=== PATIENT | male | born 1970 | race Caucasian/White ===

== ENCOUNTER 2016-11-15 22:13 | Emergency (ER) | payer MEDICAID, OTHER ==
[~2016-11-15] VITALS: Ht 185.4 cm; Wt 80.5 kg
[~2016-11-15 22:13] MED LIST: IBUP800T23 PO; Z.0.NO CURRENT MEDS
[2016-11-15 22:20] VITALS: BP 141/90; PULSE 63; RESP 16; TEMP 98.6; O2SAT 98
[2016-11-15] MEDS ORDERED: AMOX500T PO (22:45)
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
[2016-11-15] MEDS ORDERED: HYDROmorphone HCL PF 2 MG/ML VIAL IV PUSH ONE (23:00)
[2016-11-15] MEDS ORDERED: AMOXICILLIN (TRIHYDRATE) 500 MG CAP PO ONE (23:00)
== END 2016-11-15 23:05 | disposition home or self-care (01) ==
LOC: PHED 22:13
DX: J20.9 Acute bronchitis, unspecified (principal); F17.210 Nicotine dependence, cigarettes, uncomplicated; Z90.81 Acquired absence of spleen
CPT/HCPCS: 99283

== ENCOUNTER 2017-05-12 11:12 | Emergency (ER) | payer SELFPAY ==
[~2017-05-12] VITALS: Ht 185.4 cm; Wt 76.5 kg
[~2017-05-12 11:12] MED LIST changes: +AMOX500T PO; -IBUP800T23 PO; -Z.0.NO CURRENT MEDS
[2017-05-12 11:22] VITALS: BP 141/81; PULSE 61; RESP 15; TEMP 98.6; O2SAT 98
[2017-05-12] MEDS ORDERED: AMOX875T PO (12:05)
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
== END 2017-05-12 12:12 | disposition home or self-care (01) ==
LOC: PHEFT 11:12
DX: J00 Acute nasopharyngitis [common cold] (principal); F17.210 Nicotine dependence, cigarettes, uncomplicated; Z90.81 Acquired absence of spleen
CPT/HCPCS: 87081; 87804; 87880; 99283

== ENCOUNTER 2017-07-09 09:48 | Emergency (ER) | payer SELFPAY ==
[~2017-07-09] VITALS: Ht 185.4 cm; Wt 80.0 kg
[~2017-07-09 09:48] MED LIST changes: -AMOX500T PO; +AMOX875T PO
[2017-07-09 09:50] VITALS: BP 138/82; PULSE 67; RESP 16; TEMP 97.6; O2SAT 99
[2017-07-09] MEDS ORDERED: IBUPROFEN 800 MG TAB PO ONE (10:15)
--- NOTE | 2017-07-09 10:32 | PD ---
HPI . Right knee pain and swelling Chief Complaint: Musculoskeletal Complaint Time Seen by Provider: 09:54 Travel History International Travel<30 days: No Contact w/Intl Traveler<30days: No Traveled to known affect area: No History of Present Illness HPI 47-year-old male patient presents emergency department for evaluation of right knee pain and swelling 2 days. The patient denies any falls, traumas or injuries to the right knee. Patient denies any history of right knee problems. Patient states that he was running a couple months ago and felt like he pulled something the posterior aspect of his right leg proximal to the popliteal region and thinks that injury might be contributing to his right knee pain and swelling now but isn't sure. Patient denies any major medical history. Patient doesn't take any daily medication. Patient denies any fever, chills, malaise, shortness breath. Patient is ambulatory from triage with a right knee brace in place. PFSH Past Medical History Blood Disorders: Yes (THALESEMIA) Anxiety: Yes Gastrointestinal Disorders: Yes (HX OF BLOOD IN STOOLS) Past Surgical History Other Surgery: Yes (SPLEENECTOMY) Social History Alcohol Use: No Tobacco Use: Yes (/2 PPD) Substance Use: No Allergies-Medications (Allergen,Severity, Reaction): Coded Allergies: No Known Allergies (Verified Adverse Reaction, Unknown, 07/09/17) Reported Meds & Prescriptions Reported Meds & Active Scripts Active Naproxen 500 Mg Tab 500 Mg PO BID 5 Days Review of Systems Except as stated in HPI: all other systems reviewed are Neg Musculoskeletal: Positive: Edema (right knee), Pain (right knee) Physical Exam Narrative GENERAL: Well-nourished, well-developed 47-year-old male patient in no acute distress. Nontoxic appearing. SKIN: Focused skin assessment warm/dry. HEAD: Normocephalic. Atraumatic. EYES: No scleral icterus. No injection or drainage. NECK: Supple, trachea midline. No JVD or lymphadenopathy. CARDIOVASCULAR: Regular rate and rhythm without murmurs, gallops, or rubs. RESPIRATORY: Breath sounds equal bilaterally. No accessory muscle use. GASTROINTESTINAL: Abdomen soft, non-tender, nondistended. MUSCULOSKELETAL: Right knee moderately edematous. No obvious deformity, erythema cyanosis, or ecchymosis. Range of motion with extension of the right knee, limited active range of motion with flexion of the right knee secondary to edema and pain. BACK: Nontender without obvious deformity. No CVA tenderness. Data Data Last Documented VS Vital Signs Date Time Temp Pulse Resp B/P (MAP) Pulse Ox O2 Delivery O2 Flow Rate FiO2 07/09/17 09:50 97.6 67 16 138/82 (100) 99 Orders Orders Knee, Complete (4vws) (07/09/17 10:10) Ice/Cold Pack (07/09/17 10:10) Ibuprofen (Motrin) (07/09/17 10:15) Splint Or Brace Apply/Monitor (07/09/17 10:49) Ed Discharge Order (07/09/17 10:49) [facility] Medical Decision Making Medical Screen Exam Complete: Yes Emergency Medical Condition: Yes Differential Diagnosis Different diagnosis includes but not limited to right knee effusion, right knee contusion, right knee sprain, patellar dislocation Narrative Course 47-year-old male patient presents for evaluation of right knee pain. X-ray of the right knee ordered and pending. Ice applied to the right knee. Ibuprofen ordered for pain and swelling. X-ray shows osteoarthritic changes with small knee effusion. Hemant wrap applied to the right knee. Patient given a prescription for naproxen, instructed to follow up with his primary care and to follow rice therapy with the right knee. Patient states he does not need crutches because he has some waiting in his truck already. Patient discharged home. Diagnosis Primary Impression: Knee pain, right Qualified Codes: M25.561 - Pain in right knee Referrals: Primary Care Physician Patient Instructions: General Instructions, Knee Pain (ED), Osteoarthritis (DC) Additional Instructions: Please return to emergency department if your symptoms return or worsen. Follow up with your primary care provider. Take medications as prescribed. Rice therapy to right knee, rest, ice, Hemant wrap with activity and elevate with resting. Med/Other Pt SpecificInfo: Prescription(s) given Scripts Naproxen (Naproxen) 500 Mg Tab 500 MG PO BID for 5 Days, #10 TAB 0 Refills Prov: Laura Perez Tyra CABRERA 07/09/17 Disposition: 01 DISCHARGE HOME Condition: Stable AnaLaura quan Tyra CABRERA Jul 09, 2017 10:32
--- NOTE | 2017-07-09 10:39 | RADRPT ---
EXAM DATE/TIME: 07/09/2017 10:13 [facility] COMPARISON: FINGER LEFT 1ST DIGIT ([id number]), November 14, 2015, 22:18. INDICATIONS : Right knee pain, no known injury. MEDICAL HISTORY : None. SURGICAL HISTORY : None. ENCOUNTER: Initial ACUITY: 3 days PAIN SCORE: 7/10 LOCATION: Right knee FINDINGS: The exam demonstrates mild osteoarthritic changes in the medial compartment and the patellofemoral jeyson int. There is a small joint effusion. No acute fracture or destructive lesion is seen. CONCLUSION: 1. Osteoarthritic changes with small joint effusion. No acute abnormality identified. Kobi Reid MD on July 09, 2017 at 10:37 Board Certified Radiologist. This report was verified electronically.
[2017-07-09] MEDS ORDERED: NAPR500T2 PO (10:47)
== END 2017-07-09 11:04 | disposition home or self-care (01) ==
LOC: PHED 09:48 → PHEFT 11:04
DX: M25.561 Pain in right knee (principal); F17.200 Nicotine dependence, unspecified, uncomplicated
CPT/HCPCS: 73564; 99284

== ENCOUNTER 2017-09-11 15:48 | Emergency (ER) | payer OTHER ==
[~2017-09-11 15:48] MED LIST changes: -AMOX875T PO; +NAPR500T2 PO
[2017-09-11 15:54] VITALS: BP 126/69; PULSE 80; RESP 20; TEMP 99.5; O2SAT 96
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
[2017-09-11] MEDS ORDERED: ACETAMINOPHEN 325 MG TAB PO ONE (16:15)
--- NOTE | 2017-09-11 16:39 | RADRPT ---
EXAM DATE/TIME: 09/11/2017 16:30 [facility] COMPARISON: No previous studies available for comparison. INDICATIONS : Cough and short of breath for two days. MEDICAL HISTORY : None. SURGICAL HISTORY : None. ENCOUNTER: Initial ACUITY: 2 days PAIN SCORE: 0/10 LOCATION: Bilateral chest FINDINGS: A single view of the chest demonstrates the lungs to be symmetrically aerated without evidence of mas s, infiltrate or effusion. The cardiomediastinal contours are unremarkable. Osseous structures are intact. CONCLUSION: No acute disease. Carlos Enrique Martinez MD on September 11, 2017 at 16:37 Board Certified Radiologist. This report was verified electronically.
== END 2017-09-11 17:52 | disposition home or self-care (01) ==
LOC: PHEFT 15:48
DX: J06.9 Acute upper respiratory infection, unspecified (principal); M79.1 Myalgia; F17.200 Nicotine dependence, unspecified, uncomplicated
CPT/HCPCS: 71045; 87804; 99283